=== PATIENT | female | born 1960 | race African-American/Black ===

== ENCOUNTER 2018-01-01 12:42 | Day surgery (SDC) | payer BC ==
[2017-12-30 15:38] VITALS: BMI 30.7
--- NOTE | 2018-01-01 09:34 | HP ---
[facility]ellite [facility] - Chief Complaint Chief Complaint: right knee pain - Past Medical History Allergies/Adverse Reactions: Allergies Allergy/AdvReac Type Severity Reaction Status Date / Time No Known Allergies Allergy Verified 12/30/17 15:20 - Current Medications Current Medications: Home Medications Medication Instructions Recorded Bystolic 12/30/17 Losartan-Hctz 100-20 Mg Tab PO DAILY 12/30/17 Nebivolol HCl [Bystolic] 12/30/17 Hydrocodone/Acetaminophen [Boaz 1 each PO Q6H PRN #20 tablet MDD 4 01/01/18 5-325 Tablet] Satellite Physical Exam - Physical Examination General Appearance: Well Nourished, Well Developed, Alert & Oriented x3 ENT: Clear Lung: Normal air movement Heart: Regular rate & rhythm Extremities: Other (right knee- + swelling, + ttp, decr rom, + mcmurrays, nvi MRi + mmt) Neurological: Intact, Alert, Oriented Satellite Impression/Plan - Impression/Plan Impression: right knee internal derangement Operative Procedure: right knee arthroscopy Date to be Performed: 01/01/18
[2018-01-01] MEDS ORDERED: BUPIVACAINE HCL/PF 0.5% (5MG/ML) 10 ML VIAL ONE (14:32)
[2018-01-01] MEDS ORDERED: ONDANSETRON 4 MG/2 ML VIAL IVPUSH PRN (15:24)
[2018-01-01] MEDS ORDERED: oxyCODONE HCL 5 MG TABLET PO PRN (15:24)
[2018-01-01] MEDS ORDERED: LACTATED RINGERS SOLUTION 1,000 ML IV SCH (15:30)
[2018-01-01] MEDS ORDERED: PROPOFOL 20 ML ONE ×2 (15:35→15:47)
[2018-01-01] MEDS ORDERED: SUCCINYLCHOLINE CHLORIDE 200 MG/10 ML VIAL ONE (15:35)
[2018-01-01] MEDS ORDERED: MIDAZOLAM HCL 2 MG/2 ML SINGLE DOSE VIAL ONE (15:37)
[2018-01-01] MEDS ORDERED: KETOROLAC TROMETHAMINE 30 MG/1 ML VIAL ONE (15:39)
[2018-01-01] MEDS ORDERED: LIDOCAINE HCL/PF 2% SDV 5ML VIAL ONE (15:39)
[2018-01-01] MEDS ORDERED: DEXAMETHASONE SOD PHOSPHATE 4 MG/1 ML VIAL ONE (15:39)
[2018-01-01] MEDS ORDERED: ceFAZolin SODIUM 1 GM VIAL IVPB ONE (15:43)
[2018-01-01] MEDS ORDERED: ceFAZolin SODIUM 1 GM VIAL ONE (15:50)
[2018-01-01] MEDS ORDERED: SODIUM CHLORIDE 0.9% P/F 10 ML VIAL IJ ONE (15:50)
[2018-01-01] MEDS ORDERED: BUPIVACAINE HCL/PF 0.5% (5MG/ML) 10 ML VIAL IJ ONE (16:08)
--- NOTE | 2018-01-01 16:27 | OP ---
Operative Note - Note: Operative Date: 01/01/18 Pre-Operative Diagnosis: right knee pain, medial and lateral meniscus tears, OA Operation: right knee arthroscopy, partial medial and lateral meniscectomy, debridement chondroplasty Post-Operative Diagnosis: Same as Pre-op Surgeon: Talha Stephenson Anesthesiologist/YARN WORKER: Avel Sim Anesthesia: Local, MAC Estimated Blood Loss (mls): 0 Blood Volume Replaced (mls): 0 Fluid Volume Replaced (mls): 500 Operative Report Dictated: Yes
[2018-01-01 17:33] VITALS: TEMP 97.8
[2018-01-01 18:28] VITALS: BP 145/89; PULSE 59
--- NOTE | 2018-01-02 08:11 | OP ---
DATE OF OPERATION: 01/01/2018 PREOPERATIVE DIAGNOSIS: Right knee pain, medial and lateral meniscus tear, and osteoarthritis. POSTOPERATIVE DIAGNOSIS: Right knee pain, medial and lateral meniscus tear, and osteoarthritis. PROCEDURE: Right knee arthroscopy, partial medial and lateral meniscectomy, and debridement chondroplasty. SURGEON: Alba Kat MD BOOKBINDER APPRENTICE: None. ANESTHESIA: Avel Sim CRNA DRAINS: None. COMPLICATIONS: None. SPECIMENS: None. BLOOD LOSS: None. BLOOD GIVEN: None. FLUID REPLACEMENT: 500 mL Plasmalyte. This patient is a 57-year-old female with a preoperative diagnosis of right knee pain, medial and lateral meniscus tear, and osteoarthritis. After understanding the potential risks and complications of this procedure, as well as the alternatives and benefits, the patient elected to undergo this procedure. DESCRIPTION OF PROCEDURE: The patient was brought to the operating room, peripheral IV placed, IV sedation given. Ancef 2 g IV was given. LMA anesthesia was induced. Right lower extremity was prepped and draped in sterile fashion. Ample padding was placed around it including the styrofoam ring. Patient's leg was placed in the C-clamp leg gore. It was prepped and draped in sterile fashion, elevated, exsanguinated with Esmarch bandage, tourniquet inflated to 250 mmHg. Superior and medial outflow portals were established. A lateral portal was established. A diagnostic arthroscopy was performed. Under direct visualization using spinal needle, a lateral portal was established. Patient was seen to have a degenerated posterior horn of the medial meniscus. There were also radial tears of the body and posterior horn of the medial meniscus. These were debrided with the curved shaver. Patient did have grade 2 osteoarthritis, chondromalacial changes on the medial tibial plateau, and a small area of grade 4 osteoarthritis of the medial femoral condyle. The rest of the femoral condyle looked good. The intercondylar notch had a lot of synovitis. This was removed with the shaver. This revealed a very degenerative ACL. I probed it. It was definitely loose. In the lateral compartment, the patient was seen to have a frayed tear of the posterior horn of the lateral meniscus. This was debrided and cleaned up with the curved shaver. The rest of the lateral compartment looked okay. The patellofemoral joint had grade 4 osteoarthritis of the undersurface of the patella and the femoral trochlea. A debridement chondroplasty was performed, and a synovectomy; however, there were large areas of exposed bone. The knee was copiously irrigated and washed out, all instrumentation, debris, and excess saline removed. The arthroscopy portals were closed with 3-0 nylon sutures. The area was then washed and dried, covered with Xeroform gauze, then 20 mL 0.5% Marcaine was introduced into the joint. It was then covered with sterile 4 x 4's, Webril, and a 6-inch [place] bandage. The tourniquet was taken down after total tourniquet time of 18 minutes. There were no complications during the case, and patient tolerated the procedure quite well and was brought to the ambulatory recovery room in stable condition. ALBA KAT M.D. [id number]
== END 2018-01-01 18:30 | disposition home or self-care (01) ==
LOC: JASU-SURG 12:42
PROVIDERS: ATTEND Orthopaedic Surgery
PROC: 0SBC4ZZ Excision of Right Knee Joint, Percutaneous Endoscopic Approach (ICD-10-PCS; 2018-01-01)
PROC: 0SBC4ZZ Excision of Right Knee Joint, Percutaneous Endoscopic Approach (ICD-10-PCS; principal; 2018-01-01 14:00)
DX: M23.200 Derangement of unspecified lateral meniscus due to old tear or injury, right knee (principal); M23.203 Derangement of unspecified medial meniscus due to old tear or injury, right knee; M17.11 Unilateral primary osteoarthritis, right knee
CPT/HCPCS: 94760; 97116-GP